=== PATIENT | male | born 1945 | race Caucasian/White ===

== ENCOUNTER 2018-06-24 09:16 | Emergency (ER) | payer SELFPAY ==
[~2018-06-24] VITALS: Ht 172.7 cm; Wt 98.4 kg
[2018-06-24 09:36] VITALS: Ht 172.7 cm; Wt 98.4 kg
--- NOTE | 2018-06-24 12:44 | ERD ---
ER Documentation Chief Complaint Chief Complaint left flank pain this morning HPI 72-year-old male presenting with left flank pain that started early this morning. The pain was severe, originating in the left groin, radiating to his left flank. Pain was initially a 7 out of 10, currently a 1 out of 10. He did take ibuprofen prior to arrival. He did have associated nausea and nonbloody and nonbilious vomiting. He denies any dysuria or hematuria. No fevers or chills. He is unsure if he has a history of kidney stones. ROS All systems reviewed and are negative except as per history of present illness. Medications Home Meds Active Scripts Ondansetron (Ondansetron Odt) 4 Mg Tab.rapdis, 4 MG PO Q6H PRN for NAUSEA AND/OR VOMITING, #10 TAB Prov:DILLON ROSA MD 06/24/18 Reported Medications Tamsulosin Hcl* (Tamsulosin Hcl*) 0.4 Mg Cap.er.24h, 0.4 MG PO DAILY, CAP 06/24/18 Allergies Allergies: Coded Allergies: No Known Allergy (Unverified , 06/24/18) PMhx/Soc Medical and Surgical Hx: pt denies Medical Hx, pt denies Surgical Hx FmHx Family History: No diabetes Physical Exam Vitals Vital Signs Date Temp Pulse Resp B/P (MAP) Pulse Ox O2 O2 Flow FiO2 Time Delivery Rate 06/24/18 98.0 64 12 139/73 99 Room Air 14:25 (95) 06/24/18 97.8 64 20 135/78 99 Room Air 12:41 (97) 06/24/18 97.8 60 18 164/81 97 09:36 (108) Physical Exam Const: No acute distress Head: Atraumatic Eyes: Normal Conjunctiva ENT: Normal External Ears, Nose and Mouth. Neck: Full range of motion. No meningismus. Resp: Clear to auscultation bilaterally Cardio: Regular rate and rhythm, no murmurs Abd: Soft, mild left mid abdomen tenderness to palpation with no rebound or guarding. No masses. Non distended. Normal bowel sounds Skin: No petechiae or rashes Back: No midline or flank tenderness Ext: No cyanosis, or edema Neur: Awake and alert Psych: Normal Mood and Affect Result Diagram: 06/24/18 1256 06/24/18 1256 Results 24 hrs Laboratory Tests Test 06/24/18 12:46 06/24/18 12:56 Urine Color YELLOW Urine Clarity SLIGHTLY CLOUDY Urine pH 5.0 Urine Specific [place] 1.019 Urine Ketones NEGATIVE mg/dL Urine Nitrite NEGATIVE mg/dL Urine Bilirubin NEGATIVE mg/dL Urine Urobilinogen NEGATIVE mg/dL Urine Leukocyte Esterase NEGATIVE [place]/ul Urine Microscopic RBC 96 /HPF Urine Microscopic WBC 5 /HPF Urine Mucus MANY /HPF Urine Hemoglobin 3+ mg/dL Urine Glucose NEGATIVE mg/dL Urine Total Protein NEGATIVE mg/dl White Blood Count 7.8 10^3/ul Red Blood Count 4.81 10^6/ul Hemoglobin 14.0 g/dl Hematocrit 41.5 % Mean Corpuscular Volume 86.3 fl Mean Corpuscular Hemoglobin 29.1 pg Mean Corpuscular Hemoglobin Concent 33.7 g/dl Red Cell Distribution Width 12.7 % Platelet Count 182 10^3/UL Mean Platelet Volume 10.1 fl Immature Granulocytes % 0.400 % Neutrophils % 82.9 % Lymphocytes % 13.0 % Monocytes % 3.3 % Eosinophils % 0.3 % Basophils % 0.1 % Nucleated Red Blood Cells % 0.0 /100WBC Immature Granulocytes # 0.030 10^3/ul Neutrophils # 6.4 10^3/ul Lymphocytes # 1.0 10^3/ul Monocytes # 0.3 10^3/ul Eosinophils # 0.0 10^3/ul Basophils # 0.0 10^3/ul Nucleated Red Blood Cells # 0.0 10^3/ul Sodium Level 143 mmol/L Potassium Level 4.2 mmol/L Chloride Level 106 mmol/L Carbon Dioxide Level 23 mmol/L Anion Gap 14 Blood Urea Nitrogen 24 mg/dl Creatinine 0.79 mg/dl Est Glomerular Filtrat Rate mL/min mL/min Glucose Level 108 mg/dl Calcium Level 9.7 mg/dl Current Medications Medications Dose Sig/Jackie Start Time Status Last (Trade) Ordered Route PRN Stop Time Admin Dose Reason Admin Ketorolac 60 mg ONCE STAT 06/24/18 DC Tromethamine IM 14:12 (Toradol) 06/24/18 14:13 Procedures/MDM EMERGENT LABS AND DIAGNOSTIC STUDIES: Lab Results above were reviewed and interpreted by me. CBC: no anemia or evidence of infection BMP: No evidence of electrolyte abnormality, renal failure, hypoglycemia UA: No evidence of infection. Positive for hematuria Radiology Results as interpreted by Radiology below were reviewed by Mary Rosa MD: CT abdomen and pelvis shows a proximal left ureter 4 mm stone with mild hydronephrosis Initial Nursing notes reviewed. Previous Medical Records requested via the Electronic Health Record. EMERGENCY DEPARTMENT COURSE / MEDICAL DECISION MAKING: Patient is presenting with left groin and flank pain, concerning for ureterolithiasis. Low suspicion for pyelonephritis, aortic dissection, colitis. Vitals are stable and he is afebrile. Exam is only notable for mild abdominal tenderness. Given the patient has not had a CT scan of the past and has never had a kidney stone in the past, CT of the abdomen and pelvis was done, revealing mild hydronephrosis with a small left ureter stone. Patient's pain is well controlled in the ER. He is no longer vomiting and not complaining of any pain. I explained to him that he will need to pass this kidney stone and the chance of him passing it are high. I prescribed him Zofran and recommended he use ibuprofen as needed for pain. Return precautions were discussed. Follow-up with PCP was recommended within the next 1 week. Patient's blood pressure was elevated (>120/80) but appears stable without evidence of hypertensive emergency or urgency. The patient was counseled about the risks of hypertension and urged to pursue outpatient monitoring and therapy within a week with their primary care physician. Departure Diagnosis: Primary Impression: Renal colic on left side Additional Impression: Left ureteral stone Condition: Stable DILLON ROSA MD Jun 24, 2018 12:44
[2018-06-24] MEDS ORDERED: TAMS0.4C2 PO (13:04)
[2018-06-24] MEDS ORDERED: ONDA4TAB14 PO (14:10)
[2018-06-24] MEDS ORDERED: KETOROLAC 60 MG INJ IM STA (14:12)
[2018-06-24 14:25] VITALS: BP 139/73; PULSE 64; RESP 12
== END 2018-06-24 14:25 | disposition home or self-care (01) ==
LOC: E/R 09:16
DX: N23 Unspecified renal colic (principal); N20.1 Calculus of ureter
CPT/HCPCS: 36415; 74176; 80048; 81001; 85025; 99284; J1885